=== PATIENT | female | born 2000 | race Caucasian/White ===

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

== ENCOUNTER 2024-01-27 13:28 | Emergency (ER) | payer MEDICAID, SELFPAY ==
[2024-01-27 13:29] VITALS: BP 117/73; PULSE 68; RESP 16; TEMP 36.5; O2SAT 99; BMI 19.5
[2024-01-27 14:32] VITALS: O2SAT 98
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
== END 2024-01-27 15:12 | disposition home or self-care (01) ==
PROVIDERS: Emergency Provider Emergency Medicine; PCP Nurse Practitioner Family; Visit Provider Emergency Medicine
DX: S06.0X0A Concussion without loss of consciousness, initial encounter (principal); Z87.891 Personal history of nicotine dependence; S16.1XXA Strain of muscle, fascia and tendon at neck level, initial encounter; J45.909 Unspecified asthma, uncomplicated; V43.52XA Car driver injured in collision with other type car in traffic accident, initial encounter
CPT/HCPCS: 99282